=== PATIENT | female | born 1955 | race Caucasian/White ===

== ENCOUNTER 2019-07-20 12:54 | Emergency (ER) | payer MEDICARE, SELFPAY ==
[2019-07-20 13:08] VITALS: BP 164/81; PULSE 76; RESP 18; TEMP 37.2; O2SAT 97
--- NOTE | 2019-07-20 13:46 | ED.URI ---
HPI - URI/Sore Throat General Chief Complaint: Upper Respiratory Infection Stated Complaint: Sore Throat Time Seen by Provider: 07/20/19 13:46 Source: patient and RN notes reviewed Mode of arrival: ambulatory Limitations: no limitations History of Present Illness HPI Narrative: 64-year-old female presents with multiple complaints. She reports intermittent dysuria for approximately 1 week, denies frequency, urgency, flank pain, abdominal pain, abnormal vaginal discharge or abnormal vaginal bleeding. Denies fever, general malaise. In a separate complaint reports she was exposed to strep throat a week ago, reports sore throat started yesterday. Reports she saw white spots on her tonsils. MD elicited complaint: sore throat Related Data Home Medications Medication Instructions Recorded Confirmed amlodipine 10 mg PO DAILY 04/06/19 07/20/19 atorvastatin 10 mg PO DAILY 04/06/19 07/20/19 glipizide 10 mg PO DAILY 04/06/19 07/20/19 metformin 500 mg PO BID 04/06/19 07/20/19 metoprolol succinate 50 mg PO BID 04/06/19 07/20/19 sitagliptin [Januvia] 50 mg PO DAILY 04/06/19 07/20/19 ergocalciferol (vitamin D2) 50,000 unit WEEKLY 05/24/19 07/20/19 [Vitamin D2] Allergies Allergy/AdvReac Type Severity Reaction Status Date / Time nitrofurantoin Allergy Intermediate Cough Verified 07/20/19 13:26 Review of Systems Review of Systems: Narrative: CONSTITUTIONAL: Denies malaise, chills, sweats, or fever. EYES: Denies visual changes, redness, or discharge. ENT: Denies rhinorrhea, congestion, sinus pain, otalgia. Reports sore throat. CARDIOVASCULAR: Denies chest pain, palpitations, or edema. RESPIRATORY: Denies cough or dyspnea. GASTROINTESTINAL: Denies abdominal pain, nausea, vomiting, diarrhea, bloody, or mucous stools. GENITOURINARY: Reports dysuria. Denies frequency, urgency, flank pain or hematuria. SKIN: Denies rash or itching. MUSCULOSKELETAL: Denies back pain, joint pain, or myalgia. NEUROLOGIC: Denies numbness, weakness, or headache. All systems reviewed & are unremarkable except as noted in HPI and below PMFSH Social History Social History (Reviewed 04/06/19 @ 15:54 by JANINA Calderon Gender identity (if verbalized by the patient): Female Comments At time of signature, agree with nursing past medical, surgical, social and family history. There is no relevant family history pertinent to the presenting complaint Exam Narrative: Exam Narrative: GENERAL: Well-appearing, well-nourished, and in no acute distress. HEAD: Normocephalic EYES: PERRLA, conjunctivae clear ENT: Nares clear, turbinates erythematous, clear discharge. Mucous membranes moist. TM pearly mon with sharp light reflex bilaterally; no tragal tenderness. Oropharynx mildly erythematous without lesions. Tonsils not enlarged and without exudate, no drooling, no hoarseness, no trismus. NECK: Supple. No lymphadenopathy CHEST: Clear to auscultation, breath sounds equal. No wheezing, rhonchi, rales, or stridor. No respiratory distress, speaks in full sentences. HEART: Regular rate and rhythm. No murmur heard. ABDOMEN: Obese, soft, no guarding. No CVA tenderness SKIN: Warm, dry, no rash. NEURO: Alert and oriented x3. PSYCH: Normal mood and affect Course Course Emergency Course: Patient is aware of diagnosis, understands and agrees to treatment plan. Anticipatory guidance given. Patient agrees to follow-up as directed and is aware of reasons to seek care at the emergency department. Portions of this record may have been created with voice recognition software Vital Signs Vital signs: Vital Signs Temperature 98.9 F 07/20/19 13:08 Pulse Rate 76 07/20/19 13:08 Respiratory Rate 18 07/20/19 13:08 Blood Pressure 164/81 H 07/20/19 13:08 Pulse Oximetry 97 07/20/19 13:08 Temperature 98.9 F 07/20/19 13:08 Pulse Rate 76 07/20/19 13:08 Respiratory Rate 18 07/20/19 13:08 Blood Pressure 164/81 H 07/20/19 13:08 Pulse Oximetry 97 07/20/19
== END 2019-07-20 14:17 | disposition home or self-care (01) ==
PROVIDERS: Emergency Provider Nurse Practitioner
DX: R30.0 Dysuria (principal); J02.9 Acute pharyngitis, unspecified; E78.00 Pure hypercholesterolemia, unspecified; I12.9 Hypertensive chronic kidney disease with stage 1 through stage 4 chronic kidney disease, or unspecified chronic kidney disease; E11.22 Type 2 diabetes mellitus with diabetic chronic kidney disease; N18.3 Chronic kidney disease, stage 3 (moderate)
CPT/HCPCS: 81003; 87081; 87086; 87088; 87880; 99213; G0463

== ENCOUNTER 2019-11-17 17:09 | Emergency (ER) | payer MEDICARE, MEDICAID, SELFPAY ==
--- NOTE | 2019-11-17 17:28 | ED.ABDPAIN ---
HPI - Abdominal Pain General Chief Complaint: Abdominal Pain Stated Complaint: food poisoning Time Seen by Provider: 11/17/19 17:28 Source: patient Mode of arrival: ambulatory Limitations: no limitations History of Present Illness HPI narrative: Rosetta Chatterjee is a 64 yo female with a PMH of HTN, diabetes, who comes to express care with watery diarrhea and abdominal cramping x3 weeks Related Data Home Medications Medication Instructions Recorded Confirmed amlodipine 10 mg PO DAILY 04/06/19 11/17/19 atorvastatin 10 mg PO DAILY 04/06/19 11/17/19 glipizide 10 mg PO DAILY 04/06/19 11/17/19 metformin 500 mg PO BID 04/06/19 11/17/19 metoprolol succinate 50 mg PO BID 04/06/19 11/17/19 sitagliptin [Januvia] 50 mg PO DAILY 04/06/19 11/17/19 ergocalciferol (vitamin D2) 50,000 unit WEEKLY 05/24/19 11/17/19 [Vitamin D2] Allergies Allergy/AdvReac Type Severity Reaction Status Date / Time nitrofurantoin Allergy Intermediate Cough Verified 11/17/19 17:28 Review of Systems Review of Systems: Narrative: CONSTITUTIONAL: Denies fever, chills, sweats. EYES: Denies visual changes, redness, discharge. ENT: Denies rhinorrhea, congestion, sore throat, otalgia. CARDIOVASCULAR: Denies chest pain, palpitations, edema. RESPIRATORY: Denies dyspnea, wheezing, cough GASTROINTESTINAL: Denies abdominal pain, nausea, vomiting, has watery diarrhea x 3 weeks GENITOURINARY: Denies dysuria, hematuria, abnormal discharge SKIN: Denies rash or itching. NEUROLOGIC: Denies numbness, or focal weakness. PSYCHIATRIC: Denies anxiety or depression. [facility] Past Medical History Medical History Diabetes HTN (hypertension) Hypercholesterolemia Hyperthyroidism Post-menopausal Renal disease Family History Family History (Updated 11/17/19 @ 17:30 by Orin Fernando CNP) Other Hypertension Social History Social History Smoking status: Never smoker Alcohol intake: never Gender identity (if verbalized by the patient): Female Comments At time of signature, I agree with nursing past medical, surgical, social and family history. There is no relevant family history pertinent to the presenting complaint. Exam Narrative: Exam Narrative: GENERAL: This is a well-nourished, well-developed patient, in mild distress. HEAD: normocephalic, atraumatic. EYES: Sclera clear/white. Vision is grossly intact. EARS: External ears normal. Hearing grossly intact. NOSE: External nose normal without nasal discharge, nares without redness, no rhinorrhea. THROAT: Mucous membranes moist, NECK: Neck supple, CARDIOVASCULAR: Regular rate and rhythm without murmurs, gallops, or rubs. RESPIRATORY: Clear to auscultation. Breath sounds equal bilaterally. No wheezes, rales, or rhonchi. GASTROINTESTINAL: Abdomen soft, SKIN: warm, intact with no suspicious lesions or rash, good texture and turgor. NEURO: awake, alert, and oriented to person, place and time. There were no obvious focal neurologic abnormalities. Steady gait EXTREMITIES: Normal range of motion. BACK: Nontender without deformity Course Course Emergency Course: referred to ER for bloodwork and possible CT scan Vital Signs Vital signs: Vital Signs Temperature 98.3 F 11/17/19 17:30 Pulse Rate 75 11/17/19 17:30 Respiratory Rate 18 11/17/19 17:30 Blood Pressure 138/46 L 11/17/19 17:30 Pulse Oximetry 98 11/17/19 17:30 Temperature 98.3 F 11/17/19 17:30 Pulse Rate 75 11/17/19 17:30 Respiratory Rate 18 11/17/19 17:30 Blood Pressure 138/46 L 11/17/19 17:30 Pulse Oximetry 98 11/17/19 17:30 MDM - Abdominal Pain Differential Diagnosis Differential diagnosis: Likely abdominal pain, gastroenteritis and other Discharge Plan Discharge Clinical Impression: Diarrhea Qualifiers: Diarrhea type: unspecified type Qualified Code(s): R19.7 - Diarrhea, unspecified P
[2019-11-17 17:30] VITALS: BP 138/46; PULSE 75; RESP 18; TEMP 36.8; O2SAT 98
== END 2019-11-17 17:44 | disposition home or self-care (01) ==
PROVIDERS: Emergency Provider Nurse Practitioner
DX: R19.7 Diarrhea, unspecified (principal); I10 Essential (primary) hypertension; E11.9 Type 2 diabetes mellitus without complications; Z79.84 Long term (current) use of oral hypoglycemic drugs; E78.00 Pure hypercholesterolemia, unspecified; E05.90 Thyrotoxicosis, unspecified without thyrotoxic crisis or storm; N28.9 Disorder of kidney and ureter, unspecified
CPT/HCPCS: 99211; G0463

== ENCOUNTER 2019-12-25 17:42 | Emergency (ER) | payer MEDICARE, MEDICAID, SELFPAY ==
--- NOTE | 2019-12-25 17:45 | ED.GENADULT ---
HPI - General Adult General Chief complaint: Urogenital-Female Stated complaint: uti Time Seen by Provider: 12/25/19 18:02 Source: patient Mode of arrival: ambulatory Limitations: no limitations History of Present Illness HPI narrative: 64-year-old female patient presents to the [facility] with complaints of urinary symptoms for the past 5 to 6 days. Patient states she has had urgency, frequency, lower abdominal discomfort as well as pain with urination and odor to the urine. Patient denies any low back pain, fevers, nausea, vomiting or diarrhea. Related Data Home Medications Medication Instructions Recorded Confirmed amlodipine [Norvasc] 10 mg PO DAILY 12/25/19 12/25/19 atorvastatin [Lipitor] 10 mg PO DAILY 12/25/19 12/25/19 ergocalciferol (vitamin D2) 1,250 mcg PO WEEKLY 12/25/19 12/25/19 [Vitamin D2] glipizide 10 mg PO DAILY 12/25/19 12/25/19 metformin [Glucophage] 500 mg PO BID 12/25/19 12/25/19 metoprolol tartrate [Lopressor] 1 mg PO BID 12/25/19 12/25/19 sitagliptin [Januvia] 50 mg PO DAILY 12/25/19 12/25/19 Allergies Allergy/AdvReac Type Severity Reaction Status Date / Time nitrofurantoin Allergy Intermediate Cough Verified 12/25/19 18:03 Review of Systems Review of Systems: Narrative: CONSTITUTIONAL: Denies fever, chills, or sweats. EYES: Denies visual changes, redness, or discharge. ENT: Denies rhinorrhea, congestion, sore throat, or otalgia. CARDIOVASCULAR: Denies chest pain, palpitations, or edema. RESPIRATORY: Denies cough or dyspnea. GASTROINTESTINAL: Denies abdominal pain, nausea, vomiting, or diarrhea. GENITOURINARY: Denies dysuria or hematuria. Positive urgency, frequency, pain with urination and odor to urine x5 to 6 days. SKIN: Denies rash or itching. MUSCULOSKELETAL: Denies back pain, joint pain, or myalgia. NEUROLOGIC: Denies headache, numbness, or weakness. PSYCHIATRIC: Denies anxiety or depression. [facility] Past Medical History Medical History Diabetes HTN (hypertension) Hypercholesterolemia Hyperthyroidism Post-menopausal Renal disease Family History Family History Other Hypertension Social History Social History Smoking status: Never smoker Alcohol intake: never Gender identity (if verbalized by the patient): Female Comments At the time of my signature I agree with nursing past medical history, surgical, social, and family history. There is no relevant family history pertinent to the presenting complaint. Exam Narrative: Exam Narrative: GENERAL: Well-appearing, well-nourished, and in no acute distress. HEAD: Normocephalic, atraumatic. EYES: PERRLA and EOMI. ENT: Nares clear, no rhinorrhea or epistaxis. Mucous membranes moist. NECK: Supple. No lymphadenopathy CHEST: Clear to auscultation. No respiratory distress. HEART: Regular rate and rhythm. No murmur heard. Normal peripheral pulses. ABDOMEN: Soft, nontender, nondistended, normal active bowel sounds. Suprapubic tenderness on palpation. No CVA tenderness on percussion EXTREMITIES: Normal range of motion. No edema. SKIN: Warm, dry, no rash. NEURO: No focal deficits. Alert and oriented x3. Course Vital Signs Vital signs: Vital Signs Temperature 37.2 C 12/25/19 17:55 Pulse Rate 72 12/25/19 17:55 Respiratory Rate 16 12/25/19 17:55 Blood Pressure 120/69 12/25/19 17:55 Pulse Oximetry 100 12/25/19 17:55 Temperature 37.2 C 12/25/19 17:55 Pulse Rate 72 12/25/19 17:55 Respiratory Rate 16 12/25/19 17:55 Blood Pressure 120/69 12/25/19 17:55 Pulse Oximetry 100 12/25/19 17:55 Vital signs reviewed. Medical Decision Making Differential Diagnosis Differential Diagnosis: Differential diagnosis: Uncomplicated lower UTI, uncomplicated UTI, pyelonephritis Discussed with patient that according to her urine dip it does appear t
[2019-12-25 17:55] VITALS: BP 120/69; PULSE 72; RESP 16; TEMP 37.2; O2SAT 100
== END 2019-12-25 18:13 | disposition home or self-care (01) ==
PROVIDERS: Emergency Provider Nurse Practitioner Family
DX: N30.01 Acute cystitis with hematuria (principal); E11.9 Type 2 diabetes mellitus without complications; I10 Essential (primary) hypertension; E78.00 Pure hypercholesterolemia, unspecified; E05.90 Thyrotoxicosis, unspecified without thyrotoxic crisis or storm
CPT/HCPCS: 81003; 87077; 87086; 87088; 87186; 99213; G0463

== ENCOUNTER 2020-08-02 18:09 | Emergency (ER) | payer MEDICARE, MEDICAID, SELFPAY ==
[2020-08-02 18:20] VITALS: BP 140/70; PULSE 85; RESP 17; TEMP 37; O2SAT 98
--- NOTE | 2020-08-02 18:47 | ED.FEMALEGU ---
HPI - Female Genitourinary General Chief complaint: Urogenital-Female Stated complaint: UTI Time Seen by Provider: 08/02/20 18:45 Source: patient and RN notes reviewed Mode of arrival: ambulatory Limitations: no limitations History of Present Illness HPI Narrative: 65-year-old female presents to the [facility] with complaints of urgency, frequency and burning with urination. States has been intermittent since , 5 days. Has a history of a UTI and states it feels similar. Denies any nausea or vomiting or abdominal pain on exam. No chest pain or shortness of breath. Denies fevers but helps felt hot and chills. Related Data Home Medications Medication Instructions Recorded Confirmed amlodipine [Norvasc] 10 mg PO DAILY 12/25/19 08/02/20 atorvastatin [Lipitor] 10 mg PO DAILY 12/25/19 08/02/20 ergocalciferol (vitamin D2) 1,250 mcg PO WEEKLY 12/25/19 08/02/20 [Vitamin D2] glipizide 10 mg PO DAILY 12/25/19 08/02/20 metformin [Glucophage] 500 mg PO BID 12/25/19 08/02/20 metoprolol tartrate [Lopressor] 1 mg PO BID 12/25/19 08/02/20 sitagliptin [Januvia] 50 mg PO DAILY 12/25/19 08/02/20 Allergies Allergy/AdvReac Type Severity Reaction Status Date / Time nitrofurantoin Allergy Intermediate Cough Verified 08/02/20 18:18 Review of Systems Review of Systems: Narrative: CONSTITUTIONAL: Denies fever, chills, or sweats. EYES: Denies visual changes, redness, or discharge. ENT: Denies rhinorrhea, congestion, sore throat, or otalgia. CARDIOVASCULAR: Denies chest pain, palpitations, or edema. RESPIRATORY: Denies cough or dyspnea. GASTROINTESTINAL: Denies abdominal pain, nausea, vomiting, or diarrhea. GENITOURINARY: Reports dysuria, denies hematuria. SKIN: Denies rash or itching. MUSCULOSKELETAL: Denies back pain, joint pain, or myalgia. NEUROLOGIC: Denies headache, numbness, or weakness. PSYCHIATRIC: Denies anxiety or depression. All other systems reviewed are negative, except as documented in HPI. [facility] Past Medical History Medical History Diabetes HTN (hypertension) Hypercholesterolemia Hyperthyroidism Post-menopausal Renal disease Family History Family History Other Hypertension Social History Social History Smoking status: Never smoker Alcohol intake: never Gender identity (if verbalized by the patient): Female Comments At the time of my signature, I reviewed and agree with the nursing past medical, surgical, social, and family history. There is no relevant family history pertinent to the patient complaint. Exam Narrative: Exam Narrative: GENERAL: This is a well-nourished, well-developed patient, in no apparent distress. HEAD: normocephalic, atraumatic. EYES: PERRL. Sclera clear/white. Vision is grossly intact. EARS: External ears normal NECK: Neck supple, non-tender. CARDIOVASCULAR: Regular rate and rhythm without murmurs, gallops, or rubs. RESPIRATORY: Clear to auscultation. Breath sounds equal bilaterally. No wheezes, rales, or rhonchi. GASTROINTESTINAL: Abdomen soft, non-tender, nondistended. SKIN: warm, intact with no suspicious lesions or rash, good texture and turgor. NEURO: awake, alert, and oriented to person, place and time. There were no obvious focal neurologic abnormalities. EXTREMITIES: No clubbing, cyanosis, or edema. No joint tenderness, effusion, or edema noted. No calf tenderness. Negative Homans sign bilaterally. BACK: Nontender without deformity or crepitance. No flank tenderness. Course Vital Signs Vital signs: Vital Signs Temperature 98.6 F 08/02/20 18:20 Pulse Rate 85 08/02/20 18:20 Respiratory Rate 17 08/02/20 18:20 Blood Pressure 140/70 08/02/20 18:20 Pulse Oximetry 98 08/02/20 18:20 Temperature 98.6 F 08/02/20 18:20 Pulse Rate 85 08/02/20 18:20 Respiratory Rate 17 08/02/20 18:20 Blood Pressu
== END 2020-08-02 18:53 | disposition home or self-care (01) ==
PROVIDERS: Emergency Provider Nurse Practitioner
DX: N30.00 Acute cystitis without hematuria (principal); E11.9 Type 2 diabetes mellitus without complications; I10 Essential (primary) hypertension; E78.00 Pure hypercholesterolemia, unspecified; E05.90 Thyrotoxicosis, unspecified without thyrotoxic crisis or storm
CPT/HCPCS: 81003; 87086; 87088; 99213; G0463

== ENCOUNTER 2020-12-28 18:37 | Emergency (ER) | payer MEDICARE, MEDICAID, SELFPAY ==
[2020-12-28 18:47] VITALS: BP 151/92; PULSE 86; RESP 18; TEMP 36.7; O2SAT 100
--- NOTE | 2020-12-28 19:56 | ED.URI ---
HPI - URI/Sore Throat General Chief Complaint: Upper Respiratory Infection Stated Complaint: Sore Throat History of Present Illness HPI Narrative: This is a 65-year-old female comes in complaining of not feeling well states that she has been having a sore throat has been really lethargic states that her symptoms started Sunday and normally she has strep throat or urinary tract infection although she is not having any urinary tract infection symptoms. Patient states that she was tested for Covid yesterday and was negative. Patient states that she has this cough and just does not feel well find herself being really tired. Patient states she has had a fever yesterday Related Data Home Medications Medication Instructions Recorded Confirmed amlodipine [Norvasc] 10 mg PO DAILY 12/25/19 08/02/20 atorvastatin [Lipitor] 10 mg PO DAILY 12/25/19 08/02/20 ergocalciferol (vitamin D2) 1,250 mcg PO WEEKLY 12/25/19 08/02/20 [Vitamin D2] glipizide 10 mg PO DAILY 12/25/19 08/02/20 metformin [Glucophage] 500 mg PO BID 12/25/19 08/02/20 metoprolol tartrate [Lopressor] 1 mg PO BID 12/25/19 08/02/20 sitagliptin [Januvia] 50 mg PO DAILY 12/25/19 08/02/20 Allergies Allergy/AdvReac Type Severity Reaction Status Date / Time nitrofurantoin Allergy Intermediate Cough Verified 08/02/20 18:18 Review of Systems Review of Systems: CONSTITUTIONAL: Denies fever, chills, or sweats. EYES: Denies visual changes, redness, or discharge. ENT: Reports rhinorrhea, congestion, sore throat, or otalgia. CARDIOVASCULAR:Denies chest pain, palpitations, or edema. RESPIRATORY: Denies cough or dyspnea. GASTROINTESTINAL: Denies abdominal pain, nausea, vomiting, or diarrhea. GENITOURINARY: Denies dysuria or hematuria. SKIN:[Denies rash or itching. MUSCULOSKELETAL:Denies back pain, joint pain, or myalgia. NEUROLOGIC: Denies headache, numbness, or weakness. PSYCHIATRIC:Denies anxiety or depression [facility] Past Medical History Medical History (Updated 12/28/20 @ 20:03 by Francisco J Brandt NP) Diabetes HTN (hypertension) Hypercholesterolemia Hyperthyroidism Post-menopausal Renal disease Family History Family History Other Hypertension Social History Social History Smoking status: Never smoker Alcohol intake: never Gender identity (if verbalized by the patient): Female Comments At time as signature, I have reviewed and agree with nursing past medical, social, surgical and family history. Please see nursing chart for further information. There is no relevant family history pertinent to the presenting complaint. Exam Narrative: GENERAL:Well-appearing, well-nourished, and in no acute distress. HEAD:Normocephalic, atraumatic. EYES: PERRLA and EOMI. ENT: Nares clear, no rhinorrhea or epistaxis. Mucous membranes moist. Pharyngeal erythema copious amount of secretion NECK: Supple. CHEST: Clear to diminished in the lower lobe auscultation. No respiratory distress. HEART: Regular rate and rhythm. Normal peripheral pulses. ABDOMEN: Soft, nontender, nondistended, normal active bowel sounds. EXTREMITIES: Normal range of motion. No edema. SKIN: Warm, dry, no rash. NEURO: No focal deficits. Alert and oriented x3. Course [employer] Physician Supervision Negative strep Vital Signs Vital signs: Vital Signs Temperature 98.0 F 12/28/20 18:47 Pulse Rate 86 12/28/20 18:47 Respiratory Rate 18 12/28/20 18:47 Blood Pressure 151/92 H 12/28/20 18:47 Pulse Oximetry 100 12/28/20 18:47 Temperature 98.0 F 12/28/20 18:47 Pulse Rate 86 12/28/20 18:47 Respiratory Rate 18 12/28/20 18:47 Blood Pressure 151/92 H 12/28/20 18:47 Pulse Oximetry 100 12/28/20 18:47 MDM - URI/Sore Throat Differential Diagnosis Differential diagnosis: Likely upper respiratory infection, otitis media, sinusitis, viral infection, bronchitis, influenza and pha
== END 2020-12-28 20:20 | disposition home or self-care (01) ==
PROVIDERS: Emergency Provider Nurse Practitioner Family
DX: J02.9 Acute pharyngitis, unspecified (principal); I10 Essential (primary) hypertension; E11.9 Type 2 diabetes mellitus without complications; E78.00 Pure hypercholesterolemia, unspecified; E05.90 Thyrotoxicosis, unspecified without thyrotoxic crisis or storm
CPT/HCPCS: 87081; 87880; 99213; G0463

== ENCOUNTER 2022-02-04 19:14 | Emergency (ER) | payer MEDICARE, MEDICAID, SELFPAY ==
[2022-02-04 19:28] VITALS: BP 129/80; PULSE 72; RESP 16; TEMP 36.9; O2SAT 99
--- NOTE | 2022-02-04 19:30 | ED.FEMALEGU ---
HPI - Female Genitourinary General Chief complaint: Urogenital-Female Stated complaint: uti Time Seen by Provider: 02/04/22 19:28 Source: patient Mode of arrival: ambulatory Limitations: no limitations History of Present Illness HPI Narrative: 66 year old female presents to [facility] care with one week of symptoms of UTI which include burning with urination urinary frequency and urgency and some perineal pressure. Patient denies any suprapubic pain or any CVA tenderness. Patient denies any nausea vomiting or diarrhea, no known fever chills or sweats. Patient reports no vaginal discharge or itching. Patient reports that she is to have gall bladder surgery in 2 weeks. MD elicited complaint: UTI Pertinent past history: diabetes Onset (ago): week(s) (1) Related Data Home Medications Medication Instructions Recorded Confirmed amlodipine 10 mg tablet (Norvasc) 10 mg PO DAILY 12/25/19 02/04/22 atorvastatin 10 mg tablet (Lipitor) 10 mg PO DAILY 12/25/19 02/04/22 ergocalciferol (vitamin D2) 1,250 1,250 mcg PO WEEKLY 12/25/19 02/04/22 mcg (50,000 unit) capsule (Vitamin D2) glipizide 10 mg tablet, extended 10 mg PO DAILY 12/25/19 02/04/22 release 24 hr metformin 500 mg tablet 500 mg PO BID 12/25/19 02/04/22 (Glucophage) metoprolol tartrate 50 mg tablet 1 mg PO BID 12/25/19 02/04/22 (Lopressor) sitagliptin 50 mg tablet (Januvia) 50 mg PO DAILY 12/25/19 02/04/22 Allergies Allergy/AdvReac Type Severity Reaction Status Date / Time nitrofurantoin Allergy Intermediate Cough Verified 02/04/22 19:18 Review of Systems Review of Systems: CONSTITUTIONAL: Denies fever, chills, or sweats. EYES: Denies visual changes, redness, or discharge. ENT: Denies rhinorrhea, congestion, sore throat, or otalgia. CARDIOVASCULAR: Denies chest pain, palpitations, or edema. RESPIRATORY: Denies cough or dyspnea. GASTROINTESTINAL: Denies abdominal pain, nausea, vomiting, or diarrhea. GENITOURINARY: Positive dysuria no visible hematuria. SKIN: Denies rash or itching. MUSCULOSKELETAL: Denies back pain, joint pain, or myalgia. NEUROLOGIC: Denies headache, numbness, or weakness. PSYCHIATRIC: Denies anxiety or depression. All systems reviewed & are unremarkable except as noted in HPI and below PMFSH Past Medical History Medical History (Updated 02/05/22 @ 22:20 by Juana Mehta NP) Cholecystectomy planned Diabetes Facial basal cell cancer surgical excision nasal region with skin graft HTN (hypertension) Hypercholesterolemia Hyperthyroidism Post-menopausal Renal disease Family History Family History Other Hypertension Social History Social History Smoking status: Never smoker Alcohol intake: never Gender identity (if verbalized by the patient): Female Comments At time of signature, agree with nursing past medical, surgical, social and family history. There is no relevant family history pertinent to the presenting complaint Exam Narrative: GENERAL: Well-appearing, well-nourished, and in no acute distress. HEAD: Normocephalic, atraumatic. EYES: PERRLA and EOMI.throat pink with no lesions or exudates or tonsil swelling ENT: Nares clear, no rhinorrhea or epistaxis. Mucous membranes moist.TM's normal, throat pink with no lesions or exudates or tonsil swelling NECK: Supple. No lymphadenopathy CHEST: Clear to auscultation. No respiratory distress. SaO2 99% on room air HEART: Regular rate and rhythm. No murmur heard. Normal peripheral pulses. ABDOMEN: Soft, no supra pubic tender, nondistended, normal active bowel sounds.No CVA tenderness, states perineal pressure EXTREMITIES: Normal range of motion. No edema. SKIN: Warm, dry, no rash. NEURO: No focal deficits. Alert and oriented x3. Course Course Level of Care: Express Care Visit Vital Signs Vital signs: Vital Signs Temperature 36.9 C 02/04/22 19:28 Pul
== END 2022-02-04 19:50 | disposition home or self-care (01) ==
PROVIDERS: Emergency Provider Registered Nurse
DX: N39.0 Urinary tract infection, site not specified (principal); E11.9 Type 2 diabetes mellitus without complications; I10 Essential (primary) hypertension; E78.00 Pure hypercholesterolemia, unspecified; E05.90 Thyrotoxicosis, unspecified without thyrotoxic crisis or storm
CPT/HCPCS: 81003; 87077; 87086; 87186; 99213; G0463

== ENCOUNTER 2023-04-27 19:18 | Emergency (ER) | payer MEDICARE, MEDICAID, SELFPAY ==
--- NOTE | 2023-04-27 19:29 | PC.NURSE ---
in br to obtain ua spec.
[2023-04-27 19:36] VITALS: BP 155/97; PULSE 94; RESP 16; O2SAT 98
--- NOTE | 2023-04-27 20:18 | ED.FEMALEGU ---
HPI - Female Genitourinary General Chief complaint: Urogenital-Female Stated complaint: UTI Time Seen by Provider: 04/27/23 20:08 Source: patient and RN notes reviewed Mode of arrival: ambulatory Limitations: no limitations History of Present Illness HPI Narrative: Patient presents today with an intermittent 3 week history of dark and malodorous urine with intermittent dysuria. States symptoms resolved themselves, but then returned 3 days ago. She has tried no medication for symptoms prior to arrival. No recent antibiotic use. Related Data Home Medications Medication Instructions Recorded Confirmed atorvastatin 10 mg tablet (Lipitor) 10 mg PO DAILY 12/25/19 02/04/22 ergocalciferol (vitamin D2) 1,250 1,250 mcg PO WEEKLY 12/25/19 02/04/22 mcg (50,000 unit) capsule (Vitamin D2) glipizide 10 mg tablet, extended 10 mg PO DAILY 12/25/19 02/04/22 release 24 hr metformin 500 mg tablet 500 mg PO BID 12/25/19 02/04/22 (Glucophage) metoprolol tartrate 50 mg tablet 1 mg PO BID 12/25/19 02/04/22 (Lopressor) sitagliptin phosphate 50 mg tablet 50 mg PO DAILY 12/25/19 02/04/22 (Januvia) Chemo Colon Ca 04/27/23 [id number] 480 mcg/0.8 mL mcg 04/27/23 injection syringe (Zarxio) Allergies Allergy/AdvReac Type Severity Reaction Status Date / Time nitrofurantoin Allergy Intermediate Cough Verified 04/27/23 19:22 Review of Systems Review of Systems: CONSTITUTIONAL: Denies body aches, fever, chills, or sweats. EYES: Denies visual changes, redness, or discharge. ENT: Denies rhinorrhea, congestion, sore throat, or otalgia. CARDIOVASCULAR: Denies chest pain, palpitations, or edema. RESPIRATORY: Denies cough or dyspnea. GASTROINTESTINAL: Denies abdominal pain, nausea, vomiting, or diarrhea. GENITOURINARY:+ dysuria, dark urine, malodorous urine SKIN: Denies rash, itching, or wounds. MUSCULOSKELETAL: Denies back pain, joint pain, or myalgia. NEUROLOGIC: Denies headache, numbness, tingling, or weakness. PSYCH: Denies depression or anxiety. PMFSH Past Medical History Medical History Cholecystectomy planned Diabetes Facial basal cell cancer surgical excision nasal region with skin graft HTN (hypertension) Hypercholesterolemia Hyperthyroidism Post-menopausal Renal disease Family History Family History Other Hypertension Social History Social History Smoking status: Never smoker Alcohol intake: never Gender identity (if verbalized by the patient): Female Comments At time of signature, I have reviewed and agree with nursing past medical, surgical, social and family history unless otherwise noted. Please see nursing chart for further information. There is no relevant family history pertinent to the presenting complaint Exam Narrative: GENERAL: Well-appearing, well-nourished, and in no acute distress. HEAD: Normocephalic, atraumatic. EYES: EOMI. No redness or drainage. Conjunctivae normal. ENT: Mucous membranes pink and moist. NECK: Normal AROM. CHEST: No respiratory distress. Clear to auscultation. HEART: Regular rate and rhythm. No murmur appreciated. Normal peripheral pulses. ABDOMEN: Soft, nontender, nondistended, normal active bowel sounds. EXTREMITIES: Normal range of motion. No edema. SKIN: Warm, dry, no rash. Capillary refill normal. Normal skin turgor. NEURO: No focal deficits. Alert and oriented x3. Gait steady. PSYCH: Normal affect. No signs of depression or anxiety. Course Course Level of Care: Express Care Visit Vital Signs Vital signs: Vital Signs Pulse Rate 94 04/27/23 19:36 Respiratory Rate 16 04/27/23 19:36 Blood Pressure 155/97 H 04/27/23 19:36 Pulse Oximetry 98 04/27/23 19:36 Oxygen Delivery Room Air 04/27/23 19:36 Pulse Rate 94 04/27/23 19:3
== END 2023-04-27 20:24 | disposition home or self-care (01) ==
PROVIDERS: Emergency Provider Nurse Practitioner
DX: N30.01 Acute cystitis with hematuria (principal); B96.20 Unspecified Escherichia coli [E. coli] as the cause of diseases classified elsewhere; E11.9 Type 2 diabetes mellitus without complications; I10 Essential (primary) hypertension; E78.00 Pure hypercholesterolemia, unspecified; E05.90 Thyrotoxicosis, unspecified without thyrotoxic crisis or storm; Z85.828 Personal history of other malignant neoplasm of skin; Z79.84 Long term (current) use of oral hypoglycemic drugs
CPT/HCPCS: 81003; 87077; 87086; 87186; 99213; G0463